=== PATIENT | male | born 1960 | race Caucasian/White ===

== ENCOUNTER 2020-09-07 10:55 | Outpatient (CLI) | payer MEDICARE ==
[2020-09-07 14:14] LABS: ALT (SGPT) 10 U/L (8-55); AST (SGOT) 14 U/L (5-34); Albumin 4.2 g/dL (3.4-4.8); Alkaline Phosphatase 108 U/L (40-110); Anion Gap 12 mmol/L (10-20); BUN (Urea Nitrogen) 22 mg/dL (8.4-25.7); Bilirubin, Total 0.3 mg/dL (0.2-1.2); Calc. Creatinine Clearance 0 mL/min (70-130); Calcium 9.2 mg/dL (7.8-10.44); Carbon Dioxide 25 mmol/L (23-31); Chloride 110 mmol/L (98-107); Globulin 2.5 g/dL (2.4-3.5); Glucose 76 mg/dL (80-115); Potassium 4.5 mmol/L (3.5-5.1); Protein, Total 6.7 g/dL (5.8-8.1); Sodium 142 mmol/L (136-145)
[2020-09-07 14:37] LABS: #Eosinphils 0.2 10x3/uL (0.0-0.5); #Monocytes 0.4 10x3/uL (0.0-1.1); #Neutrophils 3.7 10x3/uL (1.5-8.4); %Basophils 0.6 % (0.0-2.0); %Eosinophils 2.6 % (0.0-6.0); %Lymphocytes 33.3 % (18.0-47.0); %Monocytes 5.8 % (0.0-10.0); %Neutrophils 57.5 % (40.0-75.0); Mean Corpuscular HGB CONC 32.7 g/dL (32.0-36.0); Mean Corpuscular Hemoglobin 32.3 pg (27.0-33.0); Mean Corpuscular Volume 98.5 fl (81.2-95.1); Mean Platelet Volume 12.1 fl (7.4-10.4); Platelet Count 166 10x3/uL (150-450); RBC Distribution Width 13.9 % (11.5-14.5); Red Blood Cell (RBC) Count 4.03 10x6/uL (4.32-5.72); White Blood Cell (WBC) Count 6.4 10x3/uL (3.5-10.5)
[2020-09-07 22:07] LABS: SARS-CoV-2 PCR by NAA Not Detected (NotDetected)
== END 2020-09-07 10:56 | disposition home or self-care (01) ==
LOC: LABBT 10:55
PROVIDERS: ATTEND Surgery
DX: Z01.818 Encounter for other preprocedural examination (principal); K40.90 Unilateral inguinal hernia, without obstruction or gangrene, not specified as recurrent; N50.89 Other specified disorders of the male genital organs; Z20.822 Contact with and (suspected) exposure to COVID-19
CPT/HCPCS: 80053; 85025; U0003; U0005; 87635

== ENCOUNTER 2020-09-09 05:54 | Day surgery (SDC) | payer MEDICARE ==
[2020-09-08 10:34] VITALS: BMI 23.3
[2020-09-09] MEDS ORDERED: Fentanyl 100 MCG/2 ML VIAL ONE (06:17)
[2020-09-09] MEDS ORDERED: Famotidine/PF 20 mg/2ml Vial ONE (06:17)
[2020-09-09] MEDS ORDERED: Bupivacaine 0.25% HCL 30 ML VIAL ONE (06:41)
[2020-09-09] MEDS ORDERED: XYLOCAINE 2%-EPI 1:100,000 20 ML VIAL ONE (06:41)
[2020-09-09] MEDS ORDERED: ePHEDrine 50 MG/ML VIAL ONE (07:58)
[2020-09-09] MEDS ORDERED: Ondansetron PF 4 MG/2 ML Vial ONE (07:58)
[2020-09-09] MEDS ORDERED: PHENYLEPHRINE-NS 100 MCG/ML 10 ML SYRINGE ONE (07:58)
[2020-09-09] MEDS ORDERED: Dexamethasone 20 MG/5 ML VIAL ONE (07:58)
[2020-09-09] MEDS ORDERED: Ketorolac Tromethamine 30 MG/ML VIAL ONE (07:58)
[2020-09-09] MEDS ORDERED: Lidocaine 1% PF 5 ML VIAL ONE (07:58)
[2020-09-09] MEDS ORDERED: Metoclopramide HCl 10 MG/2 ML VIAL ONE (07:58)
[2020-09-09] MEDS ORDERED: PROPOFOL 200 MG/20 ML VIAL ONE (07:58)
[2020-09-09] MEDS ORDERED: Bacitracin Zinc Ointment 30 gm TUBE ONE (08:41)
== END 2020-09-09 10:30 | disposition home or self-care (01) ==
LOC: SDC 05:54
PROVIDERS: ATTEND Surgery
PROC: 0YU50JZ Supplement Right Inguinal Region with Synthetic Substitute, Open Approach (ICD-10-PCS; principal; 2020-09-09)
PROC: 0HB9XZZ Excision of Perineum Skin, External Approach (ICD-10-PCS; 2020-09-09)
DX: K40.90 Unilateral inguinal hernia, without obstruction or gangrene, not specified as recurrent (principal); D17.6 Benign lipomatous neoplasm of spermatic cord; L82.1 Other seborrheic keratosis; E78.5 Hyperlipidemia, unspecified; I10 Essential (primary) hypertension; J42 Unspecified chronic bronchitis; I25.10 Atherosclerotic heart disease of native coronary artery without angina pectoris; Z87.891 Personal history of nicotine dependence; Z79.899 Other long term (current) drug therapy; Z95.1 Presence of aortocoronary bypass graft
CPT/HCPCS: 17110; 49505; 88304; 88305; C1781; J0690; J1100; J1885; J2405; J2704; J2765; J3010; J3490; S0020; S0028

== ENCOUNTER 2023-09-05 08:17 | Outpatient (CLI) | payer MEDICARE | END 2023-09-05 08:18 | disposition home or self-care (01) | LOC: NM 08:17 | PROVIDERS: ATTEND Family Medicine | DX: R94.6 Abnormal results of thyroid function studies (principal) | CPT/HCPCS: 78014; A9516 ==

== ENCOUNTER 2023-12-23 14:17 | Outpatient (CLI) | payer MEDICARE | END 2023-12-23 14:18 | disposition home or self-care (01) | LOC: BICCT 14:17 | PROVIDERS: ATTEND Internal Medicine Cardiovascular Disease | DX: Z12.2 Encounter for screening for malignant neoplasm of respiratory organs (principal); F17.200 Nicotine dependence, unspecified, uncomplicated | CPT/HCPCS: 71271 ==